=== PATIENT | male | born 1995 | race Caucasian/White ===

== ENCOUNTER 2018-10-09 20:45 | Emergency (ER) | payer SELFPAY ==
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
[2018-10-09] MEDS ORDERED: AMOXICILLIN/POT 875/125 1 EACH PO ONE ×2 (21:26→21:27)
[2018-10-09 21:59] VITALS: BP 129/78
== END 2018-10-09 21:51 | disposition home or self-care (01) ==
LOC: ED 20:45
DX: S60.474A Other superficial bite of right ring finger, initial encounter (principal); W50.3XXA Accidental bite by another person, initial encounter; Y99.8 Other external cause status
CPT/HCPCS: 99282; 99284